=== PATIENT | female | born 1955 | race Caucasian/White ===

== ENCOUNTER 2019-02-05 09:12 | Emergency (ER) | payer BC ==
[2019-02-05 10:21] VITALS: BP 105/67
--- NOTE | 2019-02-05 10:30 | UC ---
Throat Pain/Nasal Matt HPI - HPI Summary HPI Summary: Pt presents with c/o nasal congestion, sinus pressure and pain X 2 weeks. - History of Current Complaint Chief Complaint: UCGeneralIllness Stated Complaint: SINUS COMPLAINT Time Seen by Provider: 02/05/19 10:09 Hx Obtained From: Patient Hx Last Menstrual Period: n/a ?: No Onset/Duration: Gradual Onset, Lasting Weeks, Still Present, Worse Since - osnet Severity: Severe Pain Intensity: 10 Cough: None Associated Signs & Symptoms: Positive: Sinus Discomfort - Epiglottits Risk Factors Epiglottis Risk Factors: Negative - Allergies/Home Medications Allergies/Adverse Reactions: Allergies Allergy/AdvReac Type Severity Reaction Status Date / Time No Known Allergies Allergy Verified 02/05/19 10:21 PMH/Surg Hx/FS Hx/Imm Hx Previously Healthy: Yes - Surgical History Surgical History: Yes Surgery Procedure, Year, and Place: Appendectomy, 2009, [facility] ; C5 C6 Fusion, 1998, [facility], ; bilateral breast biopsies ;. LEFT HIP REPLACEMENT 2017 [facility]; - Family History Known Family History: Positive: Hypertension - Social History Occupation: Employed Full-time Lives: With Family Alcohol Use: Rare Substance Use Type: None Smoking Status (MU): Never Smoked Tobacco Have You Smoked in the Last Year: No - Immunization History Vaccination Up to Date: Yes Review of Systems All Other Systems Reviewed And Are Negative: Yes Constitutional: Positive: Fever, Chills, Fatigue Skin: Positive: Negative Eyes: Positive: Negative ENT: Positive: Ear Ache, Nasal Discharge, Sinus Congestion, Sinus Pain/ Tenderness Respiratory: Positive: Cough Cardiovascular: Positive: Negative Gastrointestinal: Positive: Negative Genitourinary: Positive: Negative Motor: Positive: Negative Neurovascular: Positive: Negative Musculoskeletal: Positive: Negative Neurological: Positive: Headache Is Patient Immunocompromised?: No Physical Exam Triage Information Reviewed: Yes Appearance: Ill-Appearing, Pain Distress Vital Signs: Initial Vital Signs Temp 99.3 F 02/05/19 10:18 Pulse 90 02/05/19 10:18 Resp 18 02/05/19 10:18 BP 105/67 02/05/19 10:18 Pulse Ox 97 02/05/19 10:18 Vital Signs Reviewed: Yes Eye Exam: Normal ENT: Positive: Nasal congestion, Sinus tenderness Dental Exam: Normal Neck exam: Normal Respiratory Exam: Normal Cardiovascular Exam: Normal Musculoskeletal Exam: Normal Neurological Exam: Normal Psychological Exam: Normal Skin Exam: Normal Throat Pain/Nasal Course/Dx - Differential Dx/Diagnosis Differential Diagnosis/HQI/PQRI: Otitis Media, Sinusitis, URI Provider Diagnosis: Sinusitis Discharge ED - Sign-Out/Discharge Documenting (check all that apply): Patient Departure All imaging exams completed and their final reports reviewed: No Studies - Discharge Plan Condition: Stable Disposition: HOME Prescriptions: Amoxicillin/Clavulanate TAB* [Augmentin TAB 875*] 875 mg PO Q12H #20 tab Patient Education Materials: Sinusitis (ED) Referrals: Taylor Gayle MD [Primary Care Provider] - If Needed Additional Instructions: Please follow up with your PCP as needed. For symptoms management, you may want to try Coricidin brand or the generic equivalent. - Billing Disposition and Condition Condition: STABLE Disposition: Home - Attestation Statements Provider Attestation: I was available for consult. This patient was seen by the PEE. The patient was not presented to , seen by or examined by or -Jenn Nelson MD
== END 2019-02-05 10:36 | disposition home or self-care (01) ==
LOC: UCCORT 09:12
DX: J32.9 Chronic sinusitis, unspecified (principal); Z96.642 Presence of left artificial hip joint
CPT/HCPCS: 99212; G0463